=== PATIENT | male | born 2000 | race Caucasian/White ===

== ENCOUNTER 2018-11-11 09:05 | Emergency (ER) | payer OTHER ==
[2018-11-11 09:11] VITALS: TEMP 98
--- NOTE | 2018-11-11 10:08 | ED ---
General Adult HPI - General Chief complaint: Upper Respiratory Infection Stated complaint: Coughing up blood/back pain Time Seen by Provider: 11/11/18 09:15 Source: patient, RN notes reviewed Mode of arrival: ambulatory Limitations: no limitations - History of Present Illness Initial comments: This is a 18-year-old male who presents emergency department stating that he's been coughing up sputum for about a week. Patient states he has also had some blood in the sputum more recently and having some right posterior back pain which he states wraps around the to the side. Patient states she's not short of breath at all he has no chest pain or difficulty breathing patient denies any fever or chills. Patient denies any leg swelling or calf tenderness. Patient denies any lightheadedness or dizziness. Patient denies abdominal pain patient denies nausea vomiting diarrhea. Patient states he mostly came in because he was concerned he normally doesn't see any blood in his sputum. Patient states she has had quite a bit of sinus congestion as well and wonders if the blood is coming from there possibly. - Related Data Home Medications Medication Instructions Recorded Confirmed Ibuprofen [Motrin Ib] 800 mg PO Q6H PRN 11/11/18 11/11/18 Previous Rx's Medication Instructions Recorded Azithromycin [Zithromax Tri-Nic] 500 mg PO DAILY #3 tab 11/11/18 Allergies Allergy/AdvReac Type Severity Reaction Status Date / Time No Known Allergies Allergy Verified 11/11/18 09:53 Review of Systems ROS Statement: Those systems with pertinent positive or pertinent negative responses have been documented in the HPI. ROS Other: All systems not noted in ROS Statement are negative. Past Medical History Past Medical History: No Reported History History of Any Multi-Drug Resistant Organisms: None Reported Past Surgical History: Hernia Repair Past Psychological History: Anxiety Smoking Status: Former smoker Past Alcohol Use History: None Reported Past Drug Use History: Marijuana General Exam - General Exam Comments Initial Comments: GENERAL: Patient is well-developed and well-nourished. Patient is nontoxic and well- hydrated and is in mild distress. ENT: Neck is soft and supple. No significant lymphadenopathy is noted. Oropharynx is clear. Moist mucous membranes. Neck has full range of motion without eliciting any pain. EYES: The sclera were anicteric and conjunctiva were pink and moist. Extraocular movements were intact and pupils were equal round and reactive to light. Eyelids were unremarkable. PULMONARY: Unlabored respirations. Good breath sounds bilaterally. No audible rales rhonchi or wheezing was noted. CARDIOVASCULAR: There is a regular rate and rhythm without any murmurs gallops or rubs. ABDOMEN: Soft and nontender with normal bowel sounds. SKIN: Skin is clear with no lesions or rashes and otherwise unremarkable. NEUROLOGIC: Patient is alert and oriented x3. Cranial nerves II through XII are grossly intact. Motor and sensory are also intact. Normal speech, volume and content. Symmetrical smile. MUSCULOSKELETAL: Normal extremities with adequate strength and full range of motion. LYMPHATICS: No significant lymphadenopathy is noted PSYCHIATRIC: Normal psychiatric evaluation. Limitations: no limitations Course Vital Signs 11/11/18 11/11/18 09:07 10:11 Temperature 98.0 F Pulse Rate 85 Respiratory 18 16 Rate Blood Pressure 159/100 O2 Sat by Pulse 99 Oximetry Medical Decision Making - Medical Decision Making EKG shows a normal sinus rhythm at 74 bpm IN interval is 168 QRSs 102 QT interval 384 QTC is 426 per patient's EKG shows no ST segment elevation or depression or T wave abnormalities. Chest x-ray shows no acute abnormality. - Lab Data Result diagrams: 11/11/18 10:35 11/11/18 10:35 Lab Results 11/11/18 11/11/18 11/11/18 Range/Units 10:35 10:35 10:35 WBC 7.8 (4.0-11.0) k/uL RBC 5.33 (4.30-5.90) m/uL Hgb 15.5 (13.0-17.5) gm/dL Hct 45.1 (39.0-53.0) % MCV 84.6 (80.0-100.0) fL MCH 29.0 (25.0-35.0) pg MCHC 34.3 (31.0-37.0) g/dL RDW 12.8 (11.5-15.5) % Plt Count 264 (150-450) k/uL Neutrophils % 60 % Lymphocytes % 32 % Monocytes % 6 % Eosinophils % 1 % Basophils % 1 % Neutrophils # 4.7 (1.3-7.7) k/uL Lymphocytes # 2.5 (1.0-4.8) k/uL Monocytes # 0.5 (0-1.0) k/uL Eosinophils # 0.0 (0-0.7) k/uL Basophils # 0.0 (0-0.2) k/uL D-Dimer 0.31 (<0.60) mg/L FEU Sodium 141 (137-145) mmol/L Potassium 4.4 (3.5-5.1) mmol/L Chloride 107 (98-107) mmol/L Carbon Dioxide 23 (22-30) mmol/L Anion Gap 11 mmol/L BUN 18 (9-20) mg/dL Creatinine 0.85 (0.66-1.25) mg/dL Est GFR (CKD-EPI)AfAm >90 (>60 ml/min/1.73 sqM) Est GFR (CKD-EPI)NonAf >90 (>60 ml/min/1.73 sqM) Glucose 76 (74-99) mg/dL Calcium 9.8 (8.4-10.2) mg/dL Total Bilirubin 1.2 (0.2-1.3) mg/dL AST 54 (17-59) U/L ALT 82 H (21-72) U/L Alkaline Phosphatase 109 (38-126) U/L Total Protein 7.3 (6.3-8.2) g/dL Albumin 4.6 (3.5-5.0) g/dL Disposition Clinical Impression: Bronchitis Disposition: HOME SELF-CARE Condition: Good Instructions (If sedation given, give patient instructions): Acute Bronchitis ( ED) Prescriptions: Azithromycin [Zithromax Tri-Nic] 500 mg PO DAILY #3 tab Is patient prescribed a controlled substance at d/c from ED?: No Referrals: None,Stated [Primary Care Provider] - 1-2 days Time of Disposition: 12:10
--- NOTE | 2018-11-11 11:20 | XR ---
EXAMINATION TYPE: XR chest 2V DATE OF EXAM: 11/11/2018 COMPARISON: 07/11/2016 chest radiograph HISTORY: Cough and congestion for one week TECHNIQUE: Frontal and lateral views of the chest are obtained. FINDINGS: There is no focal air space opacity, pleural effusion, or pneumothorax seen. The cardiac silhouette size is within normal limits. The osseous structures are intact. IMPRESSION: No acute cardiopulmonary process. No significant interval change.
[2018-11-11 11:52] LABS: Basophils % (A) 1 %; Eosinophils % (A) 1 %; HCT 45.1 % (39.0-53.0); HGB 15.5 gm/dL (13.0-17.5); Lymphocytes # (A) 2.5 k/uL (1.0-4.8); Lymphocytes % (A) 32 %; MCHC 34.3 g/dL (31.0-37.0); MCV 84.6 fL (80.0-100.0); Mean Platelet Volume 7.2; Monocytes # (A) 0.5 k/uL (0-1.0); Monocytes % (A) 6 %; Neutrophils # (A) 4.7 k/uL (1.3-7.7); Neutrophils % (A) 60 %; Platelet Count 264 k/uL (150-450); RBC 5.33 m/uL (4.30-5.90); RDW 12.8 % (11.5-15.5); WBC 7.8 k/uL (4.0-11.0)
[2018-11-11 12:01] LABS: ALT 82 U/L (21-72); AST 54 U/L (17-59); Albumin 4.6 g/dL (3.5-5.0); Alkaline Phosphatase 109 U/L (38-126); Anion Gap 11 mmol/L; Blood Urea Nitrogen 18 mg/dL (9-20); Calcium 9.8 mg/dL (8.4-10.2); Carbon Dioxide 23 mmol/L (22-30); Chloride 107 mmol/L (98-107); Glucose 76 mg/dL (74-99); Potassium 4.4 mmol/L (3.5-5.1); Sodium 141 mmol/L (137-145); Total Bilirubin 1.2 mg/dL (0.2-1.3); Total Protein 7.3 g/dL (6.3-8.2)
[2018-11-11 12:26] VITALS: BP 142/64; PULSE 89; RESP 18
== END 2018-11-11 12:25 | disposition home or self-care (01) ==
LOC: EC 09:05
DX: J40 Bronchitis, not specified as acute or chronic (principal); M54.9 Dorsalgia, unspecified; Z87.891 Personal history of nicotine dependence
CPT/HCPCS: 36415; 71046; 80053; 85025; 85379; 99284

== ENCOUNTER 2022-03-22 09:48 | Emergency (ER) | payer OTHER ==
[2022-03-22 10:08] VITALS: BP 144/86; PULSE 80; RESP 20; TEMP 98.4
--- NOTE | 2022-03-22 10:49 | XR ---
Right foot HISTORY: Pain, trauma 3 views of the right foot No comparison Bone mineralization, joint spaces and alignment are maintained. IMPRESSION: No fracture or dislocation. Follow-up as indicated.
--- NOTE | 2022-03-22 11:28 | ED ---
Lower Extremity Injury HPI - General Chief Complaint: Extremity Injury, Lower Stated Complaint: rt foot injury Time Seen by Provider: 03/22/22 10:38 Source: patient, RN notes reviewed Mode of arrival: ambulatory Limitations: no limitations - History of Present Illness Initial Comments: 21-year-old male presents emergency Department with chief complaint of right foot pain. Patient states he is running a baseball bag states he stepped in a hole states feels a pop in his right foot. Patient states she has pain over the arch. Patient states with any movement or weightbearing is increasing pain no pain at top of his foot no ankle pain no paresthesias no other complaints. - Related Data Home Medications Medication Instructions Recorded Confirmed Ibuprofen [Motrin Ib] 800 mg PO Q6H PRN 11/11/18 11/11/18 Previous Rx's Medication Instructions Recorded Azithromycin [Zithromax Tri-Nic] 500 mg PO DAILY #3 tab 11/11/18 Ibuprofen [Motrin] 600 mg PO Q8HR PRN #20 tab 03/22/22 Allergies Allergy/AdvReac Type Severity Reaction Status Date / Time No Known Allergies Allergy Verified 03/22/22 10:09 Review of Systems ROS Statement: Those systems with pertinent positive or pertinent negative responses have been documented in the HPI. ROS Other: All systems not noted in ROS Statement are negative. Past Medical History Past Medical History: No Reported History History of Any Multi-Drug Resistant Organisms: None Reported Past Surgical History: Hernia Repair Past Psychological History: Anxiety Smoking Status: Current every day smoker Past Alcohol Use History: Occasional Past Drug Use History: Marijuana General Exam Limitations: no limitations General appearance: alert, in no apparent distress Head exam: Present: atraumatic, normocephalic, normal inspection Respiratory exam: Present: normal lung sounds bilaterally. Absent: respiratory distress, wheezes, rales, rhonchi, stridor Cardiovascular Exam: Present: regular rate, normal rhythm, normal heart sounds. Absent: systolic murmur, diastolic murmur, rubs, gallop, clicks Extremities exam: Present: other (Right foot there is tenderness diffusely over the plantar surface of the right foot, there is no dorsal tenderness, neurovascular intact no malar tenderness no discoloration digits there is some ecchymotic area over the arch Refill less than 2 seconds) Skin exam: Present: warm, dry, intact, normal color. Absent: rash Course Vital Signs 03/22/22 10:05 Temperature 98.4 F Pulse Rate 80 Respiratory 20 Rate Blood Pressure 144/86 O2 Sat by Pulse 98 Oximetry Medical Decision Making - Medical Decision Making X-ray of the right foot is negative for acute abnormality. Patient has a right foot sprain poked orthopedics remain to be partially weight-bear as tolerated continue anti-inflammatories, icing return for any worsening change in symptoms Disposition Clinical Impression: Right foot sprain Disposition: HOME SELF-CARE Condition: Stable Instructions (If sedation given, give patient instructions): Foot Sprain (ED) Additional Instructions: Please return to the Emergency Department if symptoms worsen or any other concerns. Prescriptions: Ibuprofen [Motrin] 600 mg PO Q8HR PRN #20 tab PRN Reason: Pain Is patient prescribed a controlled substance at d/c from ED?: No Referrals: None,Stated [Primary Care Provider] - 1-2 days Jeremy Julian MD [Medical Doctor] - 1-2 days Time of Disposition: 11:28
== END 2022-03-22 11:57 | disposition home or self-care (01) ==
LOC: EC 09:48
DX: S93.601A Unspecified sprain of right foot, initial encounter (principal); F17.200 Nicotine dependence, unspecified, uncomplicated; F12.90 Cannabis use, unspecified, uncomplicated; X50.1XXA Overexertion from prolonged static or awkward postures, initial encounter; Y93.64 Activity, baseball
CPT/HCPCS: 99283

== ENCOUNTER 2023-01-13 07:07 | Emergency (ER) | payer OTHER ==
[2023-01-13 07:23] VITALS: BP 164/87; PULSE 90; RESP 18; TEMP 98.9
[2023-01-13] MEDS ORDERED: CIPROFLOXACIN-DEXAMETH 0.3-0.1% DROPS 7.5 ML BTL RIGHT EAR STA (07:37)
--- NOTE | 2023-01-13 07:41 | ED ---
ENT HPI - General Chief complaint: ENT Stated complaint: Right Ear Pain Time Seen by Provider: 01/13/23 07:23 Source: patient, RN notes reviewed Mode of arrival: ambulatory Limitations: no limitations - History of Present Illness Initial comments: This is a 22-year-old male who presents to the emergency department for right ear pain. States that this has been present for about a week. He does have a history of ear infections. Denies any drainage from the ear, feelings of fullness, or hearing loss. He has not had any fevers or upper respiratory sy mptoms. Denies any fevers, chills, sore throat, cough, dyspnea, chest pain, palpitations, abdominal pain, nausea, vomiting, diarrhea, back pain, or headaches. MD complaint: ear pain Onset/Timin -: week(s) Location: R ear - Related Data Home Medications Medication Instructions Recorded Confirmed Ibuprofen [Motrin Ib] 800 mg PO Q6H PRN 11/11/18 11/11/18 Previous Rx's Medication Instructions Recorded Azithromycin [Zithromax Tri-Nic] 500 mg PO DAILY #3 tab 11/11/18 Ibuprofen [Motrin] 600 mg PO Q8HR PRN #20 tab 03/22/22 Amoxicillin 875 mg PO Q12HR 7 Days #14 tablet 01/13/23 Allergies Allergy/AdvReac Type Severity Reaction Status Date / Time No Known Allergies Allergy Verified 01/13/23 07:23 Review of Systems ROS Statement: Those systems with pertinent positive or pertinent negative responses have been documented in the HPI. ROS Other: All systems not noted in ROS Statement are negative. Past Medical History Past Medical History: No Reported History History of Any Multi-Drug Resistant Organisms: None Reported Past Surgical History: Hernia Repair Past Psychological History: Anxiety Smoking Status: Current every day smoker, Vaper Past Alcohol Use History: Occasional Past Drug Use History: Marijuana General Exam Limitations: no limitations General appearance: alert, in no apparent distress Head exam: Present: atraumatic, normocephalic, normal inspection ENT exam: Present: other (Minor right TM erythema. Decreased movement with forced Valsalva on the right. No tenderness with movement of the tragus.) Respiratory exam: Present: normal lung sounds bilaterally. Absent: respiratory distress, wheezes, rales, rhonchi, stridor Cardiovascular Exam: Present: regular rate, normal rhythm, normal heart sounds. Absent: systolic murmur, diastolic murmur, rubs, gallop, clicks Neurological exam: Present: alert, oriented X3, CN II-XII intact Psychiatric exam: Present: normal affect, normal mood Skin exam: Present: warm, dry, intact, normal color. Absent: rash Course Vital Signs 01/13/23 07:21 Temperature 98.9 F Pulse Rate 90 Respiratory 18 Rate Blood Pressure 164/87 O2 Sat by Pulse 99 Oximetry Medical Decision Making - Medical Decision Making This is a 22-year-old male who presents to the emergency department for right ear pain. Was pt. sent in by a medical professional or institution? @ -No Did you speak to anyone other than the patient for history? @ -No Did you review nursing and triage notes? @ -Yes, and I agree, it is accurate with regards to the patient's symptoms. Were old charts reviewed? @ -No Differential Diagnosis? @ -Differential Ear Pain: Otitis media, otitis externa, eustachian tube dysfunction, allergic rhinitis, barotrauma, bullous myringitis, this is not meant to be an all-inclusive list. What testing was considered but not performed? (CT, X-rays, U/S, labs)? Why? @ -None What meds were considered but not given? Why? @ -None Did you discuss the management of the patient with other professionals? @ -No Did you reconcile home meds? @ -No Was smoking cessation discussed for >3mins.? @ -No Was critical care preformed (if so, how long)? @ -No Were there social determinants of health that impacted care today? How? (Homelessness, low income, unemployed, alcoholism, drug addiction, transportation, low edu. Level, literacy, decrease access to med. care, detention, rehab)? @ -No Was there de-escalation of care discussed even if they declined? (Discuss DNR or withdrawal of care, Hospice)? @ -No What co-morbidities impacted this encounter? (DM, HTN, Smoking, COPD, CAD, Cancer, CVA, Hep., AIDS, mental health diagnosis, sleep apnea, morbid obesity)? @ -None Was patient admitted / discharged? @ -Discharged. Physical examination consistent with an otitis media and possible eustachian tube dysfunction. Prescription for amoxicillin provided with dosing instructions reviewed. He was given bottles of Flonase and Ciprodex eardrops in the emergency department. Dosing instructions reviewed and listed in the patient discharge instructions. We also discussed using an antihistamine. Undiagnosed new problem with uncertain prognosis? @ -None Drug Therapy requiring intensive monitoring for toxicity (Heparin, Nitro, Insulin, Cardizem)? @ -None Were any procedures done? @ -None Diagnosis/symptom? @ -AOM, Eustachian tube dysfunction Acute, or Chronic, or Acute on Chronic? @ -Acute Uncomplicated (without systemic symptoms) or Complicated (systemic symptoms)? @ -Uncomplicated Side effects of treatment? @ -None Exacerbation, Progression, or Severe Exacerbation] @ -Not applicable Poses a threat to life or bodily function? @ -No Return precautions reviewed in depth, the patient is instructed to return to the emergency department with any new, worsening, or concerning symptoms. Patient verbalized understanding. This case was discussed in detail with the attending ED physician, Dr. Villarreal. Presentation, findings, and treatment plan discussed in detail as well. Disposition Clinical Impression: Otitis media, Eustachian tube dysfunction Disposition: HOME SELF-CARE Instructions (If sedation given, give patient instructions): Ear Infection (ED) Additional Instructions: Return to the emergency department with any new, worsening, or concerning symptoms. Take the oral antibiotic as prescribed for 7 days. Use the eardrops as 4 drops to the right ear twice daily for 7 days. Use the Flonase nasal spray as 2 sprays in each nostril twice daily for 7 days. If the Flonase nasal spray starts to dry out your nose or give you a nosebleed, stop using it and switch to saline nasal spray. You can also use an [id number] antihistamine such as Vani or Claritin. Follow up with your primary care provider in 1-2 days. Prescriptions: Amoxicillin 875 mg PO Q12HR 7 Days #14 tablet Is patient prescribed a controlled substance at d/c from ED?: No Referrals: None,Stated [Primary Care Provider] - 1-2 days
[2023-01-13] MEDS ORDERED: FLUTICASONE 50MCG/SPRAY NASAL 16GM EA NOSTRIL ONE (07:45)
== END 2023-01-13 08:03 | disposition home or self-care (01) ==
LOC: EC 07:07
DX: H69.81 Other specified disorders of Eustachian tube, right ear (principal); H66.91 Otitis media, unspecified, right ear; F41.9 Anxiety disorder, unspecified; F17.290 Nicotine dependence, other tobacco product, uncomplicated; F12.90 Cannabis use, unspecified, uncomplicated
CPT/HCPCS: 99282